=== PATIENT | male | born 1980 | race American Indian/Alaskan Native ===

== ENCOUNTER 2020-05-01 14:13 | Emergency (ER) | payer SELFPAY ==
[2020-05-01 14:25] VITALS: BP 130/85
[2020-05-01] MEDS ORDERED: ONDANSETRON 4 MG ODT TAB PO ONE (14:28)
[2020-05-01] MEDS ORDERED: SODIUM CHLORIDE 0.9% 1000 ML 1,000 ML IV ONE ×2 (14:36→15:53)
[2020-05-01] MEDS ORDERED: DIPHENOXYLATE/ATROPINE TAB PO ONE (14:37)
--- NOTE | 2020-05-01 14:37 | Emergency Department Report ---
ED N/V/D HPI - General Chief complaint: Nausea/Vomiting/Diarrhea Stated complaint: VOMITING Time Seen by Provider: 05/01/20 14:27 Source: patient Mode of arrival: Ambulatory Limitations: No Limitations - History of Present Illness Initial comments: 40-year-old male with no significant past medical history presents to the ER today with complaints of nausea vomiting and diarrhea. Onset 2 days ago. Patient states that his symptoms started an hour after eating after eating catered food from [employer] which was delivered to his job. He stat es that he ate the food an hour after it was delivered. He states that he did warm it up in the microwave. He states that it did not taste or smell bad at the time. States that he started getting nauseous and started vomiting an hour after eating. He states that he vomited all day yesterday, today mainly nausea but last night he started with diarrhea and has continued diarrhea today. He denies any blood in his vomit or in his diarrhea. He reports intermittent diffuse abdominal cramping. He states that he felt "hot and cold, intermittently last night but no fever. He denies any recent travel out of the country or recent antibiotic use. He states that as far as he knows, there is no one else at his job who ate the food has similar symptoms to him. MD complaint: nausea, vomiting, diarrhea -: Sudden (About 2 days ago) - Related Data Previous Rx's Medication Instructions Recorded Last Taken Type Dicyclomine [Bentyl] 10 mg PO QID PRN #40 capsule 05/01/20 Unknown Rx Ondansetron [Zofran Odt] 4 mg PO Q8HR PRN #15 tab.rapdis 05/01/20 Unknown Rx Allergies Allergy/AdvReac Type Severity Reaction Status Date / Time No Known Allergies Allergy Verified 05/01/20 16:31 ED Review of Systems ROS: Stated complaint: VOMITING Other details as noted in HPI Comment: All other systems reviewed and negative Constitutional: weakness, other (Generalized fatigue) Gastrointestinal: abdominal pain, nausea, vomiting, diarrhea Neurological: weakness ED Past Medical Hx - Past Medical History Previous Medical History?: No - Surgical History Past Surgical History?: No - Social History Smoking Status: Never Smoker Substance Use Type: None - Medications Home Medications: Home Medications Medication Instructions Recorded Confirmed Last Taken Type Dicyclomine [Bentyl] 10 mg PO QID PRN #40 capsule 05/01/20 Unknown Rx Ondansetron [Zofran Odt] 4 mg PO Q8HR PRN #15 tab.rapdis 05/01/20 Unknown Rx ED Physical Exam - General Limitations: No Limitations General appearance: alert, in no apparent distress - Head Head exam: Present: atraumatic, normocephalic, normal inspection - Eye Eye exam: Present: normal appearance, PERRL, EOMI Pupils: Present: normal accommodation - ENT ENT exam: Present: normal orophraynx, mucous membranes dry - Neck Neck exam: Present: normal inspection - Respiratory Respiratory exam: Present: normal lung sounds bilaterally. Absent: respiratory distress - Cardiovascular Cardiovascular Exam: Present: normal rhythm, tachycardia, normal heart sounds - GI/Abdominal GI/Abdominal exam: Present: soft. Absent: distended, tenderness - Neurological Exam Neurological exam: Present: alert, oriented X3, CN II-XII intact - Psychiatric Psychiatric exam: Present: normal affect, normal mood - Skin Skin exam: Present: intact ED Course Vital Signs 05/01/20 05/01/20 14:19 17:58 Temperature 99 F Pulse Rate 120 H 86 Respiratory 20 18 Rate Blood Pressure 130/85 O2 Sat by Pulse 98 99 Oximetry ED Medical Decision Making - Lab Data Result diagrams: 05/01/20 14:38 05/01/20 14:38 - Medical Decision Making 1600: Labs reviewed, patient BS noted to be 350; Pt initially report no pmhx but I asked patient again given elevated BS level and he then admitted to his of and he is glipizide. He admitted that he has not taken his meds today. Another 1L IV fluid bolus ordered and oral mag. 181: Patient resting comfortably in room. Currently playing on his phone. He reports some improvement of his symptoms after meds. He has reported 2 episodes of diarrhea (without blood or mucous) after meds but otherwise no vomiting or nausea. He has soft non surgical abd exam. His FSBS improved with fluids to 218 and HR also improved with fluids. He is overal not toxic, ill appearing and currently in no distress. He is neurologically intact with normal gait. No indication for additional w/u or admission at this time. Discussed lab results, suspected dx and tx plan with patient. Pt expressed understanding of ins tructions and agrees with plan. Pt also instructed to take his DM meds when he gets home. Critical care attestation.: If time is entered above; I have spent that time in minutes in the direct care of this critically ill patient, excluding procedure time. ED Disposition Clinical Impression: Nausea vomiting and diarrhea Disposition: DC-01 TO HOME OR SELFCARE Is pt being admited?: No Does the pt Need Aspirin: No Condition: Stable Instructions: Nausea and Vomiting, Adult, [id number], Diarrhea, Adult, [id number], Food Poisoning, [id number] Additional Instructions: Take the medications as prescribed. Drink lots of fluids. I recommend that you take diabetic medication when you get home. Follow-up closely with your primary care doctor this week. Return to the ER if your symptoms changes or worsens in any way. Prescriptions: Dicyclomine [Bentyl] 10 mg PO QID PRN #40 capsule PRN Reason: Abdominal Cramps/Diarrhea Ondansetron [Zofran Odt] 4 mg PO Q8HR PRN #15 tab.rapdis PRN Reason: Nausea/Vomiting' Referrals: MARILYN ALAN MD [Staff Physician] - 3-5 Days Forms: Work/School Release Form(ED) Time of Disposition: 17:29
[2020-05-01 14:51] LABS: Basophils % (Auto) 0.4 % (0.0-1.8); Eosinophils % (Auto) 0.1 % (0.0-4.3); Hematocrit 46.2 % (35.5-45.6); Hemoglobin 15.5 gm/dl (11.8-15.2); Lymphocytes # (Auto) 1.2 K/mm3 (1.2-5.4); Mean Corpuscular HGB Conc 34 % (32-34); Mean Corpuscular Volume 88 fl (84-94); Monocytes # (Auto) 0.6 K/mm3 (0.0-0.8); Monocytes % (Auto) 14.2 % (0.0-7.3); Platelet Count 191 K/mm3 (140-440); Red Blood Count 5.28 M/mm3 (3.65-5.03); Red Cell Distribution Width 14.3 % (13.2-15.2)
[2020-05-01 15:16] LABS: Alanine Aminotransferase 31 units/L (7-56); Albumin 4.7 g/dL (3.9-5); BUN/Creatinine Ratio 13; Blood Urea Nitrogen 12 mg/dL (9-20); Hemolysis Index 5
[2020-05-01] MEDS ORDERED: MAGNESIUM OXIDE 400 MG TAB PO STA (15:54)
[2020-05-01 16:40] LABS: Bilirubin,Urine NEG (Negative); Blood,Urine NEG (Negative); Color,Urine Yellow (Yellow); Mucus,Urine FEW /HPF; Urobilinogen,Urine < 2.0 mg/dL (<2.0); WBC,Urine < 1.0 /HPF (0.0-6.0)
[2020-05-01] MEDS ORDERED: DICYCLOMINE 20 MG/2 ML INJ IM ONE (17:24)
== END 2020-05-01 18:35 | disposition home or self-care (01) ==
LOC: ED 14:13
DX: R11.2 Nausea with vomiting, unspecified (principal); R19.7 Diarrhea, unspecified; Z79.899 Other long term (current) drug therapy
CPT/HCPCS: 36415; 80053; 81001; 82962; 83690; 83735; 85025; 96360; 96361; 96372; 99283; J0500; J7030; Q0162